=== PATIENT | female | born 1985 | race African-American/Black ===

== ENCOUNTER 2021-10-11 17:25 | Emergency (ER) | payer OTHER ==
[2021-10-11] MEDS ORDERED: ACETAMINOPHEN 325 MG TABLET (FP) ONE (17:44)
[2021-10-11] MEDS ORDERED: ACETAMINOPHEN 500 MG TABLET (FP) PO ONE (17:44)
[2021-10-11] MEDS ORDERED: IBUPROFEN 400 MG TABLET (FP) PO ONE ×2 (17:44)
[2021-10-11 17:56] VITALS: BP 106/72; PULSE 81; TEMP 97.8; BMI 22.4
[2021-10-11] MEDS ORDERED: NAPROXEN 500 MG TABLET PO ONE (20:07)
[2021-10-11] MEDS ORDERED: CEPHALEXIN MONOHYDRATE 500 MG CAPSULE (UD) PO ONE (20:12)
[2021-10-11] MEDS ORDERED: CEPHALEXIN MONOHYDRATE 500 MG CAPSULE (UD) ONE (20:14)
== END 2021-10-11 21:15 | disposition home or self-care (01) ==
LOC: FER 17:25
DX: S89.92XA Unspecified injury of left lower leg, initial encounter (principal); V89.2XXA Person injured in unspecified motor-vehicle accident, traffic, initial encounter
CPT/HCPCS: 73562-TC-LT-FY; 73590-TC-LT-FY; 73610-TC-LT-FY; 73630-TC-LT; 93971-TC; 99285-25

== ENCOUNTER 2021-10-19 16:59 | Emergency (ER) | payer OTHER ==
[2021-10-19] MEDS ORDERED: VANCOMYCIN 1 GM in D5W (PRE-DOCKED) 1,000 MG/250 ML IVPB ONE (17:21)
[2021-10-19] MEDS ORDERED: PIPERACILLIN/TAZOB 3.375 GM 3.375 GM in DEXTROSE 5%-WATER - 50 ML IVPB ONE (17:21)
[2021-10-19] MEDS ORDERED: PIPERACILLIN/TAZOBACTAM 3.375 GM VIAL IVPB ONE (17:49)
[2021-10-19] MEDS ORDERED: VANCOMYCIN 1,000 MG VIAL (RESTRICTED TO ID ONLY) ONE (17:49)
[2021-10-19 17:59] LABS: INR 1.14 (0.83-1.09); PROTHROMBIN TIME (PATIENT) 13.1 SEC (9.7-13.0)
[2021-10-19 18:01] LABS: ACTIVATED PTT 34.3 SECONDS (25.2-36.5)
[2021-10-19 18:06] LABS: BILIRUBIN,TOTAL 0.6 mg/dl (0.2-1); CALCIUM 9.8 mg/dl (8.5-10); CREATININE 0.6 mg/dl (0.55-1.3); HEMATOCRIT 32.8 % (32.4-45.2); HEMOGLOBIN 11.5 G/dL (10.7-15.3); MCH 30.5 pg (25.7-33.7); MCHC 35.2 g/dl (32.0-36.0); MEAN CELL VOLUME 86.8 fl (80-96); MEAN PLT VOLUME 7.1 fl (7.5-11.1); PLATELET COUNT 890.9 10^3/uL (134-434); RBC 3.78 10^6/uL (3.60-5.2); RDW 14.8 % (11.6-15.6); TOT PROT 7.4 g/dl (6.4-8.2); WHITE BLOOD COUNT 13.9 10^3/uL (4.0-10.8)
[2021-10-19] MEDS ORDERED: IBUPROFEN 400 MG TABLET (FP) PO ONE ×2 (18:42→18:45)
[2021-10-19 18:59] VITALS: BP 116/61; PULSE 83; TEMP 98.8; BMI 21.5
[2021-10-19 18:59] LABS: ERYTHROCYTE SEDIMENTATION RATE 36 mm/hr (0-20)
[2021-10-19] MEDS ORDERED: ACETAMINOPHEN 325 MG TABLET (FP) PO PRN (19:25)
[2021-10-19 19:56] LABS: ADD RBC MORPHOLOGY YES; PLATELET ESTIMATE INCREASED
[2021-10-19] MEDS ORDERED: PIPERACILLIN/TAZOB 3.375 GM 3.375 GM in DEXTROSE 5%-WATER - 50 ML IVPB SCH (21:00)
[2021-10-20] MEDS ORDERED: VANCOMYCIN 1 GM in D5W (PRE-DOCKED) 1,000 MG/250 ML IVPB SCH (08:00)
[2021-10-20] MEDS ORDERED: ENOXAPARIN NA (PORCINE) 40 MG/0.4 ML DISP.SYRIN SQ SCH (10:00)
[2021-10-20] MEDS ORDERED: POLYETHYLENE GLYCOL (HEALTHYLAX) 3350 17 GM PACKET PO SCH (10:00)
== END 2021-10-19 20:32 | disposition left against medical advice (07) ==
LOC: FER 16:59
DX: R22.42 Localized swelling, mass and lump, left lower limb (principal); L03.116 Cellulitis of left lower limb
CPT/HCPCS: 36415; 73590-TC-LT-FY; 80053; 82550; 85025; 85610; 85651; 85730; 86140; 87040; 93971-TC; 99285-25; C9803-CS; U0003; U0005